=== PATIENT | female | born 1955 | race Caucasian/White ===

== ENCOUNTER 2017-12-17 10:53 | Day surgery (SDC) | payer BC ==
[~2017-12-17 10:53] MED LIST: Lactated Ringers 1,000 ML IV SCH; Sodium Chloride 0.9% 10 ML Syringe FLUSH PRN; Sodium Chloride 0.9% 2.5 ML Syringe FLUSH PRN
[2017-12-17] MEDS ORDERED: Propofol 200 MG/20 ML SDV ONE (11:26)
[2017-12-17] MEDS ORDERED: Ondansetron 4 MG/2 ML SDV ONE (11:26)
[2017-12-17] MEDS ORDERED: fentaNYL 100 MCG/2 ML SDV ONE (11:26)
[2017-12-17] MEDS ORDERED: Midazolam 1 MG/ML 2 ML SDV ONE (11:26)
--- NOTE | 2017-12-17 11:33 | PCM.PREANE ---
Preanesthetic Assessment - Anesthesia/Transfusion/Family Hx Anesthesia History: Prior Anesthesia Reaction Family History of Anesthesia Reaction: No Transfusion History: No Prior Transfusion(s) Intubation History: Unknown - Review of Systems General: No Symptoms Pulmonary: No Symptoms Cardiovascular: No Symptoms Gastrointestinal: Hematochezia, Other (h/o diverticulosis and colon polyps) Neurological: No Symptoms Other: Reports: None - Physical Assessment O2 Sat by Pulse Oximetry: 94 Respiratory Rate: 16 Vital Signs: Last Vital Signs Temp 36.4 C 12/17/17 11:14 Pulse 58 L 12/17/17 11:14 Resp 16 12/17/17 11:14 BP 183/80 H 12/17/17 11:14 Pulse Ox 94 L 12/17/17 11:14 Height: 1.7 m Weight: 97.522 kg ASA Class: 2 Mental Status: Alert & Oriented x3 Airway Class: Mallampati = 2 Dentition: Reports: Normal Dentition, [place](s) (x1 upper left), Broken Tooth/ Teeth (botom right x1 and left x1) Thyro-Mental Finger Breadths: 2 Mouth Opening Finger Breadths: 2 ROM/Head Extension: Full Lungs: Clear to Auscultation, Normal Respiratory Effort Cardiovascular: Regular Rate, Regular Rhythm - Allergies Allergies/Adverse Reactions: Allergies Allergy/AdvReac Type Severity Reaction Status Date / Time No Known Allergies Allergy Verified 12/15/17 12:09 - Blood Blood Available: No - Anesthesia Plan Pre-Op Medication Ordered: None - Acknowledgements Anesthesia Type Planned: MAC Pt an Appropriate Candidate for the Planned Anesthesia: Yes Alternatives and Risks of Anesthesia Discussed w Pt/Guardian: Yes Pt/Guardian Understands and Agrees with Anesthesia Plan: Yes PreAnesthesia Questionnaire HEENT History: Reports: Cataract, Glaucoma Other HEENT History: wears glasses Cardiovascular History: Reports: Hypertension Respiratory History: Reports: Other (See Below) Other Respiratory History: patient thinks she has asthma or COPD...no inhaler Gastrointestinal History: Reports: Colon Polyp, Diverticulosis 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: Endometriosis Musculoskeletal History: Reports: Back Pain, Chronic, Fracture Other Musculoskeletal History: hx of fx left arm as a child Neurological History: Reports: Migraines Other Neuro History: no migranes since hysterectomy, had episode of motion sickness one time Psychiatric History: Reports: Anxiety, Depression Endocrine/Metabolic History: Reports: Other (See Below) Other Endocrine/Metabolic History: was told she had hyperglycemia, no meds - Past Surgical History HEENT Surgical History: Reports: Tonsillectomy GI Surgical History: Reports: Appendectomy, Cholecystectomy, Colonoscopy Female Surgical History: Reports: Hysterectomy - SUBSTANCE USE Smoking Status *Q: Current Every Day Smoker (10-15 cigarettes per day) Tobacco Use Within Last Twelve Months: Cigarettes Recreational Drug Use History: No - HOME MEDS Home Medications: Home Meds Bimatoprost [LUMIGAN 0.01% Ophth Soln] 1 drop EYEBOTH DAILY 12/15/17 [History] Brinzolamide/Brimonidine Tart [Simbrinza 1%-0.2% Eye Drops] 1 drop EYEBOTH BID 12/15/17 [History] Cyclobenzaprine HCl 10 mg PO TID PRN 12/15/17 [History] Escitalopram Oxalate 20 mg PO DAILY 12/15/17 [History] Estradiol [Vagifem] 1 tab VAG WEEKLY 12/15/17 [History] Lisinopril/Hydrochlorothiazide [Lisinopril-Hctz 20-12.5 mg Tab] 1 tab PO DAILY 12/15/17 [History] Metoprolol Tartrate 25 mg PO BID 12/15/17 [History] Multivitamin [Multivitamins] 1 tab PO DAILY 12/15/17 [History] Nystatin [Nystatin Crm] 1 applic TOP ASDIRECTED 12/15/17 [History] busPIRone HCl [Buspirone HCl] 5 mg PO DAILY 12/15/17 [History] traMADol Hcl/Acetaminophen [Ultracet Tablet] 1 tab PO BEDTIME 12/15/17 [History] - CURRENT (IN HOUSE) MEDS Current Meds: Current Medications Lactated Ringer's (Ringers, Lactated) 1,000 mls @ 125 mls/hr IV ASDIRECTED ESTHER Last Admin: 12/17/17 11:06 Dose: 125 mls/hr Sodium Chloride (Saline Flush) 10 ml FLUSH ASDIRECTED PRN PRN Reason: Keep Vein Open Sodium Chloride (Saline Flush) 2.5 ml FLUSH ASDIRECTED PRN PRN Reason: Keep Vein Open Sodium Chloride (Saline Flush) 10 ml FLUSH ASDIRECTED PRN PRN Reason: Keep Vein Open Sodium Chloride (Saline Flush) 2.5 ml FLUSH ASDIRECTED PRN PRN Reason: Keep Vein Open Discontinued Medications Fentanyl (Sublimaze) Confirm Administered Dose 100 mcg .ROUTE .STK-MED ONE Stop: 12/17/17 11:27 Midazolam HCl (Versed 1 Mg/Ml) Confirm Administered Dose 2 mg .ROUTE .STK-MED ONE Stop: 12/17/17 11:27 Ondansetron HCl (Zofran) Confirm Administered Dose 4 mg .ROUTE .STK-MED ONE Stop: 12/17/17 11:27 Propofol (Diprivan 20 Ml) Confirm Administered Dose 200 mg .ROUTE .STK-MED ONE Stop: 12/17/17 11:27
--- NOTE | 2017-12-17 13:08 | PCM.OPNOTE ---
- General Post-Op/Procedure Note Date of Surgery/Procedure: 12/17/17 Operative Procedure(s): Incomplete colonoscopy Findings: Incomplete colonoscopy. Stenotic area at 20-25 cm. Unable to go past this point safely. 4 quadrant biopsies taken. Area marked with tattoo-ing. Pre Op Diagnosis: Change in bowel habits Post-Op Diagnosis: Incomplete colonoscopy. Stenosis at 20-25cm Anesthesia Technique: MAC Primary Surgeon: Brenda Simmons Condition: Good
--- NOTE | 2017-12-17 13:53 | PCM.POSTAN ---
POST ANESTHESIA ASSESSMENT - MENTAL STATUS Mental Status: Alert, Oriented - RESPIRATORY Respiratory Status: Respiratory Rate WNL - CARDIOVASCULAR CV Status: Pulse Rate WNL, Blood Pressure Stable - GASTROINTESTINAL GI Status: No Symptoms - PAIN Pain Score: 0 - POST OP HYDRATION Hydration Status: Adequate & Stable - OBSERVATIONS Free Text/Narrative:: no anesthesia problems
--- NOTE | 2017-12-17 13:54 | PCM48HPAN ---
Post Anesthesia Note - EVALUATION WITHIN 48HRS OF ANESTHETIC Vital Signs in Normal Range: Yes Patient Participated in Evaluation: Yes Respiratory Function Stable: Yes Airway Patent: Yes Cardiovascular Function Stable: Yes Hydration Status Stable: Yes Pain Control Satisfactory: Yes Nausea and Vomiting Control Satisfactory: Yes Mental Status Recovered: Yes Resp Rate: 14 - COMMENTS/OBSERVATIONS Free Text/Narrative:: no anesthesia problems, patient is waiting to have barium enema study
--- NOTE | 2017-12-17 14:23 | OR ---
SURGEON: KOKO MORELAND MD DATE OF PROCEDURE: 12/17/2017 PREOPERATIVE DIAGNOSIS: Change in bowel habits. POSTOPERATIVE DIAGNOSIS: Stenosis of colon. Diverticulosis. PROCEDURE PERFORMED: Incomplete colonoscopy. ANESTHESIA: MAC. INSTRUMENT USED: Olympus colonoscope. EXTENT OF EXAM: 25 cm into the colon. PREPARATION: Fair. LIMITATIONS: Unable to pass the scope past stenotic area between 20-25 cm. INDICATIONS: The patient is a 62-year-old female, who presents with acute change in her bowel habits since . She had a history of diverticulosis. The patient and I discussed the need for colonoscopy. We discussed the procedure, expected perioperative course, and risks including bleeding, infection, or damage to surrounding structures including perforation. The patient verbalized understanding and wishes to proceed. PROCEDURE IN DETAIL: The patient was brought into the endoscopy suite and placed in the left lateral decubitus position. A time-out was completed verifying the patient's name, age, date of , allergies, and procedure to be performed. Monitored anesthesia care was induced and continuous oxygen was provided via nasal cannula throughout the procedure. After adequate sedation was achieved, a digital rectal exam was performed. This exam was within normal limits. A well-lubricated colonoscope was then inserted in the rectum and advanced under direct visualization to approximately 25 cm in. At this area, the colon was stenosed. I attempted abdominal wall manipulation as well as position changes. Despite this, I was unable to safely pass my scope past this point. The tissue appeared slightly abnormal, although it did not frankly appear like cancer. Four quadrant biopsies were taken at this area and the area injected with ink for identification in the future. The biopsies were sent as sigmoid colon biopsy. The decision was made to not attempt pass the scope any further. The scope was then slowly withdrawn and brought into the rectum. The scope was retroflexed and a photograph taken of the anal canal opening which appeared normal. The scope was then straightened out and slowly withdrawn. The procedure was terminated. The patient taken to the PACU in stable condition. ENDOSCOPIC DIAGNOSIS: Stenotic area in the sigmoid colon. Diverticulosis. RECOMMENDATIONS: We will have the patient undergo a barium enema today. Will follow up on the results of the barium enema and biopsies. ROSEMARY / JEB /[id number] MTDD
--- NOTE | 2017-12-17 16:34 | CR ---
EXAMINATION: Barium minimal HISTORY: Narrowing, incomplete colonoscopy COMPARISON: None TECHNIQUE: A single contrast barium enema was attempted. FINDINGS: The rectum is normally distensible. There is a significant focal stricture within the sigmo id region demonstrated. Because of the degree of the stricture was difficult to pass contrast beyond the sigmoid region. Contrast made it to the mid transverse colon and the cecal region was not well id entified. IMPRESSION: 1. Significant stricture within the sigmoid colon. The remaining colon was not adequately distended f or characterization.
== END 2017-12-17 15:34 | disposition home or self-care (01) ==
LOC: MW.SDS 10:53
PROVIDERS: ATTEND Surgery
DX: K56.699 Other intestinal obstruction unspecified as to partial versus complete obstruction (principal); K57.30 Diverticulosis of large intestine without perforation or abscess without bleeding; F17.200 Nicotine dependence, unspecified, uncomplicated; I10 Essential (primary) hypertension; F41.8 Other specified anxiety disorders; Z86.010 Personal history of colon polyps; Z79.899 Other long term (current) drug therapy
CPT/HCPCS: 45331; 45335; 74270; J2250; J2405; J3010; J7120; J2704

== ENCOUNTER 2018-09-27 08:34 | Emergency (ER) | payer BC ==
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
[2018-09-27 09:35] LABS: CHLORIDE,CL 103 mmol/L (98-107); SODIUM,NA 138 mmol/L (136-145)
--- NOTE | 2018-09-27 10:11 | CR ---
EXAMINATION: Left knee HISTORY: Pain COMPARISON: None TECHNIQUE: 3 views FINDINGS/IMPRESSION: There is no acute osseous abnormality, dislocation, or fracture. Bone mineralization and normal with mild joint space narrowing within the patellofemoral compartment. No joint effusion or focal soft tissue swelling.
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
== END 2018-09-27 11:04 | disposition home or self-care (01) ==
LOC: MW.ED 08:34
DX: S20.211A Contusion of right front wall of thorax, initial encounter (principal); M25.561 Pain in right knee; M25.562 Pain in left knee; I10 Essential (primary) hypertension; E11.9 Type 2 diabetes mellitus without complications; Z79.899 Other long term (current) drug therapy; Z90.49 Acquired absence of other specified parts of digestive tract; Z90.710 Acquired absence of both cervix and uterus; V53.5XXA Driver of pick-up truck or van injured in collision with car, pick-up truck or van in traffic accident, initial encounter
CPT/HCPCS: 36415; 71045; 71100; 72170; 73562; 80053; 80305; 81001; 83690; 84484; 85025; 85610; 86850; 86900; 86901; 93005; 99284; G0480